=== PATIENT | female | born 1995 | race Caucasian/White ===

== ENCOUNTER 2019-10-07 20:59 | Emergency (ER) | payer OTHER ==
--- NOTE | 2019-10-07 22:37 | RADIOLOGY REPORT (SQ) ---
EXAM DESCRIPTION: CLINICAL HISTORY: 24 years Female, right sided chest pain COMPARISON: None. FINDINGS: Cardiomediastinal silhouette is not enlarged. Mild prominence of the main pulmonary artery usually normal at this age. No suspicious lung pleural bone abnormalities. IMPRESSION: No acute findings.
--- NOTE | 2019-10-08 02:22 | ER Document Report ---
HPI - HPI Time Seen by Provider: 10/08/19 02:13 Pain Level: 3 Context: Patient is a 24-year-old female that comes emergency department for chief complaint of 3 days of worsening symptoms of pain along the right side of her chest. She states that it hurts over the right side of the chest when she takes a deep breath or when she moves/twists her torso or moves her right arm/shoulder. Pain is intermittently worse. She denies difficulty breathing, fever, vomiting, injury, flank pain, or any other locations of pain. She denies recent illness. She denies smoking or daily medications other than oral contraceptive. She denies personal or family history of blood clot, [place]. She denies recreational drugs. - CARDIOVASCULAR Cardiovascular: REPORTS: Chest pain - REPRODUCTIVE LMP: 09/16 Reproductive: DENIES: : Past Medical History - General Information source: Patient - Social History Smoking Status: Never Smoker Frequency of alcohol use: Social Lives with: Family Family History: Reviewed & Not Pertinent Patient has suicidal ideation: No Patient has homicidal ideation: No - Medical History Medical History: Negative Surgical Hx: Negative - Immunizations Immunizations up to date: Yes Hx Diphtheria, Pertussis, Tetanus Vaccination: Yes Vertical Provider Document - CONSTITUTIONAL General Appearance: WD/WN, No Apparent Distress - INFECTION CONTROL TRAVEL OUTSIDE OF THE [place] IN LAST 30 DAYS: No - HEENT HEENT: Atraumatic, Normal ENT Exam, Normocephalic - NECK Neck: Normal Inspection - RESPIRATORY Respiratory: Breath Sounds Normal, No Respiratory Distress. negative: Chest Non-Tender - There is reproducible specific but mild tenderness over the right mid anterior chest wall without erythema, induration, crepitus, or swelling. - CARDIOVASCULAR Cardiovascular: Regular Rate, Regular Rhythm - GI/ABDOMEN Gastrointestinal: Abdomen Soft, Abdomen Non-Tender - BACK Back: Normal Inspection - MUSCULOSKELETAL/EXTREMETIES Musculoskeletal/Extremeties: MAEW, FROM, Non-Tender - NEURO Level of Consciousness: Awake, Alert, Appropriate Motor/Sensory: No Motor Deficit, No Sensory Deficit Course - Re-evaluation Re-evalutation: Patient with pleuritic pain that is mild, worse with deep breath, she also some pain with palpation over the right side of the chest. No injury or concerning symptoms, unremarkable vital signs. Patient does take oral contraceptive but she does not smoke, has no lower extremity swelling, no recent travel or surgery, no personal or family history of pulmonary embolism, no hypoxia, tachycardia, or severe symptoms. I did discuss possible DVT work-up but since symptoms are much more likely chest wall pain versus pleurisy this was deferred. I did discuss treatment for this, expectations, follow-up, and return precautions at length. EKG and chest x-ray are normal. Patient states agreement and appreciation. Stable at time of discharge. - Vital Signs Vital signs: Temp Pulse Resp BP Pulse Ox 98.1 F 75 18 122/74 100 10/08/19 01:02 10/07/19 21:36 10/07/19 21:36 10/07/19 21:36 10/07/19 21:36 - EKG Interpretation by Me Additional EKG results interpreted by me: EKG shows sinus rhythm at a rate of 73, QTC of 428, normal axis, no T wave inversions or ST segment changes in consecutive leads. Discharge - Discharge Clinical Impression: Pleuritic pain, Right-sided chest pain Condition: Stable Disposition: HOME, SELF-CARE Additional Instructions: Your evaluation and work-up are most consistent with pleurisy. You have been treated for this initially, complete treatment by taking the Naprosyn as prescribed, stay hydrated and rest. Symptoms should gradually resolve. Follow- up with primary care. Return for any concerning symptoms including difficulty breathing, fever, passing out, severe worsening pain, or any other concerning or worsening symptoms. Prescriptions: Naproxen [Naprosyn 375 Mg Tablet] 375 mg PO BID #20 tablet
[2019-10-08] MEDS ORDERED: DEXAMETHASONE SOD PHOS INJ 10 MG/1 ML VIAL IM ONE (02:24)
[2019-10-08 02:54] VITALS: BP 108/69
--- NOTE | 2019-10-08 13:07 | EKG REPORT ---
SEVERITY:- NORMAL ECG - SINUS RHYTHM : Confirmed by: Patricia Reynoso MD 08-Oct-2019 13:07:22
== END 2019-10-08 02:53 | disposition home or self-care (01) ==
LOC: ER 20:59
DX: R07.81 Pleurodynia (principal); R07.1 Chest pain on breathing; Z79.3 Long term (current) use of hormonal contraceptives
CPT/HCPCS: 93005; 99285; 96372; 71046; 93010; J1100